=== PATIENT | male | born 2000 | race Two or more races ===

== ENCOUNTER 2024-02-24 20:29 | Emergency (ER) | payer OTHER ==
[~2024-02-24] VITALS: Ht 172.7 cm; Wt 64.4 kg
[2024-02-24 20:51] VITALS: BP 119/74; O2SAT 95
[2024-02-24] MEDS ORDERED: GUAIFENESIN/DEXTROMETHORPHAN 10ML BLIST.PACK PO ONE ×2 (21:30→21:38)
[2024-02-24] MEDS ORDERED: DEXAMETHASONE SODIUM PHOSPHATE 4 MG/ML VIAL IM ONE (21:30)
[2024-02-24] MEDS ORDERED: DEXAMETHASONE SODIUM PHOSPHATE 4 MG/ML VIAL ONE (21:38)
[2024-02-24 21:46] LABS: HEMATOCRIT 41.9 % (39.0-48.0); HEMOGLOBIN 14.7 g/dL (13-16.00); MEAN CELL VOLUME 85.5 fL (80.0-100.00); MEAN CORPUSCULAR HGB CONC 35.1 g/dl (32.0-36.0); PLATELET COUNT 242 K/uL (150-450); RED CELL DISTRIBUTION WIDTH 12.8 % (11.5-14.5)
[2024-02-24] MEDS ORDERED: TUSNEL LIQUID178 ML PO (23:04)
[2024-02-24] MEDS ORDERED: ZITHROMAX500 MG PO (23:04)
[2024-02-24] MEDS ORDERED: ZYRTEC10 M3 PO (23:04)
== END 2024-02-24 23:18 | disposition home or self-care (01) ==
LOC: ER 20:31
PROVIDERS: General Practice
DX: J39.9 Disease of upper respiratory tract, unspecified (principal); Z20.822 Contact with and (suspected) exposure to COVID-19